=== PATIENT | male | born 1960 | race Caucasian/White ===

== ENCOUNTER 2022-03-01 12:43 | Outpatient (CLI) | payer BC ==
[2022-03-01 18:03] LABS: BASOPHILS % (AUTO) 0.4 %; EOSINOPHILS # (AUTO) 0.1 10^3/uL (0.0-0.7); HCT - HEMATOCRIT 47.5 % (42.0-52.0); HGB - HEMOGLOBIN 15.7 g/dL (14.0-18.0); LYMPHOCYTES # (AUTO) 2.5 10^3/uL (1.5-3.5); LYMPHOCYTES % (AUTO) 32.9 %; MEAN CORPUSCULAR HEMOGLOBIN 29.2 pg (27.0-31.0); MEAN CORPUSCULAR HGB CONC 33.1 g/dL (32.0-36.0); MEAN CORPUSCULAR VOLUME 88.3 fL (80.0-94.0); MEAN PLATELET VOLUME 10.6 fL (7.4-11.4); MONOCYTES # (AUTO) 0.8 10^3/uL (0.0-1.0); MONOCYTES % (AUTO) 9.9 %; NEUTROPHILS # (AUTO) 4.3 10^3/uL (1.5-6.6); NEUTROPHILS % (AUTO) 55.4 %; PLT - PLATELET COUNT 294 10^3/uL (130-450); RED BLOOD COUNT 5.38 10^6/uL (4.70-6.10); RED CELL DISTRIBUTION WIDTH 12.6 % (12.0-15.0); WHITE BLOOD COUNT 7.7 x10^3/uL (4.8-10.8)
[2022-03-01 18:33] LABS: ALBUMIN 4.5 g/dL (3.2-5.5); ALBUMIN/GLOBULIN RATIO 1.3 (1.0-2.2); ALKALINE PHOSPHATASE 45 IU/L (42-121); ALT ALANINE AMINOTRANSFERASE 21 IU/L (10-60); AST ASPARTATE AMINOTRANSFERASE 16 IU/L (10-42); BILIRUBIN,TOTAL 0.7 mg/dL (0.2-1.0); BUN - BLOOD UREA NITROGEN 17 mg/dL (6-20); CALCIUM 9.7 mg/dL (8.5-10.3); CARBON DIOXIDE - CO2 27 mmol/L (21-32); CHLORIDE 103 mmol/L (101-111); CHOL/HDL RATIO 4.9 (<5.0); CHOLESTEROL 162 mg/dL; CREATININE 0.9 mg/dL (0.6-1.2); GFR - MDRD 85 (>89); GLUCOSE 104 mg/dL (70-100); HDL CHOLESTEROL 33 mg/dL; LDL CHOLESTEROL,CALCULATED 96 mg/dL; LDL/HDL RATIO 2.9 (<3.6); POTASSIUM 4.4 mmol/L (3.5-5.0); SODIUM 138 mmol/L (135-145); TOTAL PROTEIN 7.9 g/dL (6.7-8.2); TRIGLYCERIDES 165 mg/dL; VLDL CHOLESTEROL 33 mg/dL
[2022-03-01 18:42] LABS: THYROID STIMULATING HORMONE 2.48 uIU/mL (0.34-5.60)
== END 2022-03-01 12:44 | disposition home or self-care (01) ==
LOC: LAB.N 12:43
PROVIDERS: ATTEND Physician Assistant
DX: Z13.9 Encounter for screening, unspecified (principal); Z13.220 Encounter for screening for lipoid disorders; Z12.5 Encounter for screening for malignant neoplasm of prostate; Z13.29 Encounter for screening for other suspected endocrine disorder
CPT/HCPCS: 36415; 80053; 80061; 83721; 84153; 84443; 85025

== ENCOUNTER 2022-03-01 13:10 | Outpatient (CLI) | payer BC ==
--- NOTE | 2022-03-01 14:38 | XRAY Report ---
PROCEDURE: Lumbar Spine 2 View INDICATIONS: PARESTHESIA OF L LOWER LIMB TECHNIQUE: 3 views of the lumbar spine were acquired. COMPARISON: None. FINDINGS: Bones: 5 [id number] vertebrae are present. There is normal bony alignment. No vertebral body compression fractures. No suspicious bony lesions. There is moderate degenerative disc disease present L3-4, L4-5, and L5-S1. Soft tissues: Overlying bowel gas pattern is normal. No suspicious soft tissue calcifications. IMPRESSION: Moderate degenerative disc disease present L3-4, L4-5, and L5-S1. Reviewed by: Jose Garcia MD on 03/01/2022 2:37 PM PDT Approved by: Jose Garcia MD on 03/01/2022 2:37 PM PDT Station ID: [id number]
--- NOTE | 2022-03-01 14:51 | XRAY Report ---
PROCEDURE: Knee 3 View BILAT INDICATIONS: ARTHRITIS, BILATERAL KNEES TECHNIQUE: 3 views of the right and left knee(s) were acquired. COMPARISON: None. FINDINGS: Bones: There is moderate to severe osteoarthritic type degenerative change present involving both kn ees with the medial compartments most severely affected. No fractures or dislocations are seen. There is a 2.5 cm low-grade cartilaginous lesion involving the distal right femoral metaphysis. Soft tissues: No joint effusion. No suspicious soft tissue calcifications. IMPRESSION: 1. Moderate to severe osteoarthritic degenerative change involving both knees with medial compartment most severely affected. 2. 2.5 cm low-grade cartilaginous lesion distal right femoral metaphysis. 3. No evidence for acute osseous abnormality involving the right or left knee. Reviewed by: Jose Garcia MD on 03/01/2022 2:49 PM PDT Approved by: Jose Garcia MD on 03/01/2022 2:49 PM PDT Station ID: [id number]
== END 2022-03-01 13:11 | disposition home or self-care (01) ==
LOC: DI.N 13:10
PROVIDERS: ATTEND Physician Assistant
DX: M17.0 Bilateral primary osteoarthritis of knee (principal); M51.36 Other intervertebral disc degeneration, lumbar region; M51.37 Other intervertebral disc degeneration, lumbosacral region; R93.6 Abnormal findings on diagnostic imaging of limbs; Z13.9 Encounter for screening, unspecified; Z13.220 Encounter for screening for lipoid disorders; Z12.5 Encounter for screening for malignant neoplasm of prostate; Z13.29 Encounter for screening for other suspected endocrine disorder
CPT/HCPCS: 36415; 80053; 80061; 83721; 84153; 84443; 85025

== ENCOUNTER 2022-04-06 11:53 | Outpatient (CLI) | payer BC ==
[2022-04-06 12:27] LABS: CREATININE 0.9 mg/dL (0.6-1.2)
[2022-04-06] MEDS ORDERED: GADOBUTROL 10 MMOL/10 ML VIAL ONE (12:51)
[2022-04-06] MEDS ORDERED: GADOBUTROL 10 MMOL/10 ML VIAL IVP ONE (16:42)
--- NOTE | 2022-04-07 09:53 | MRI Report ---
PROCEDURE: KNEE W/WO - RT INDICATIONS: NEOPLASM OF ARTICULAR CARTILAGE CONTRAST: gadavist 10ml TECHNIQUE: Noncontrast sagittal PD fast spin echo and T2 fast spin echo with fat saturation, sagittal 3-D spoile d GE with fat saturation; coronal T1 spin echo and PD fast spin echo with fat saturation, and axial T 1 spin echo and PD fast spin echo with fat saturation through the knee. Post-contrast axial, coronal , and sagittal T1 spin echo with fat saturation through the knee. COMPARISON: X-ray right knee, 03/01/2022. FINDINGS: Image quality: Excellent. Menisci: There is medial meniscal extrusion and complex tear of the medial meniscus involving the pos terior horn and body, as well as peripheral aspect of the anterior horn. The body of the medial menis cus is truncated. The lateral meniscus demonstrates normal morphology. This mild intrasubstance degeneration in the ant erior horn. No kraig meniscal tear. The meniscal root ligaments appear intact. Cruciate ligaments: There is mild mucoid degeneration of the anterior cruciate ligament. The posteri or cruciate ligament is intact. Medial structures: The medial collateral ligament appears intact. The semimembranosus tendon insert ions and meniscocapsular junction appear intact. Visualized portions of the pes anserinus tendons ap pear normal. No abnormal bursal fluid. Lateral structures: The lateral collateral ligament, long and short heads of the biceps femoris tend on appear intact. The popliteus tendon appears normal. Iliotibial band appears normal. Anterior structures: The quadriceps and patellar tendons appear intact. Patellar alignment is mini l. No femoral trochlear dysplasia or ventral trochlear prominence. No edema in the infrapatellar fa t pad. There is a small fluid collection in the prepatellar bursa consistent with bursitis. Bones and cartilage: There is a 2.3 x 1.2 x 3.1 cm mass in the distal femoral metaphysis demonstratin g chondroid matrix and MRI signal characteristics compatible with an enchondroma.. No bone marrow co ntusions or fractures. There is tricompartmental cartilage thinning and fibrillation, most pronounced in the medial femorotibial compartment with denuded weightbearing articular surface medial femoral c ondyle and medial tibial plateau. Reactive subchondral edema is seen in the medial femoral condyle an d medial tibial plateau, likely secondary to "[id number]". Joint space: There is trace knee joint effusion. A small Herrera's cyst. Normal appearing synovial p licae are incidentally noted. No suspicious soft tissue enhancement. IMPRESSION: 1. A 2.1 x 1.2 x 3.1 cm enchondroma in the distal femoral metaphysis. 2. Medial meniscal extrusion and extensive tear. 3. Severe cartilage degeneration in the medial femorotibial compartment with denuded weightbearing ar ticular surface in the medial femoral condyle and medial tibial plateau. 4. Prepatellar bursitis. 5. A small Herrera's cyst. Reviewed by: Guillaume Soriano MD on 04/07/2022 9:52 AM PDT Approved by: Guillaume Soriano MD on 04/07/2022 9:52 AM PDT Station ID: [id number]
== END 2022-04-06 11:54 | disposition home or self-care (01) ==
LOC: LAB 11:53
PROVIDERS: ATTEND Physician Assistant
DX: D16.21 Benign neoplasm of long bones of right lower limb (principal); S83.241A Other tear of medial meniscus, current injury, right knee, initial encounter; M70.41 Prepatellar bursitis, right knee
CPT/HCPCS: 36415; 73723; 82565; A9585

== ENCOUNTER 2022-04-18 09:46 | Outpatient (CLI) | payer BC ==
[2022-04-18 10:56] VITALS: BP 140/90
--- NOTE | 2022-04-18 10:56 | SLEEP CARE CONSULTATION ---
Information from patient questionnaire entered by Harry Weir. I have reviewed and concur with the information entered by Harry Weir. This document represents the service I personally performed and the decisions made by me, Frederick Hallman MD, [facility]. History of Present Illness Service Date and Time: 04/18/2022 0946 Reason for Visit: New patient Chief Complaint: reports: Insomnia, Unrefreshed sleep, Snoring, Excessive daytime sleepiness, Observed pauses in breathing, Fatigue, Frequent awakenings at night Date of Onset: YEARS Usual bedtime: 10-12PM Time it takes to fall asleep: 20-30MIN Snores at night: Yes Observed to quit breathing while asleep: Yes Sleeps alone due to snoring: Yes Number of times waking at night: 2 Reasons for waking at night: reports: Bathroom Toss, Turn, or Twitch while sleeping: Yes Recalls having dreams: Yes Usually gets out of bed at: 6-7AM Feels refreshed in the morning: No Morning headache: No Sleepy or fatigued during the day: Yes Ever fallen asleep while driving: No Takes day naps: Yes Dreams during day naps: Yes Prior sleep studies: Yes Additional HPI information: I had the pleasure of seeing Mr. Chino today regarding the possibility of him having a sleep disorder. As you know, he is a 61-year-old gentleman who complains of loud snore, observed apneas, insomnia, unrefreshed sleep, and excessive daytime sleepiness for years. He had a sleep study about 15 years ago in [place]. He was prescribed a CPAP which he used for about 3 years. He said he never got used to the device. He did sleep better on it. The patient tells me that he normally goes to bed around 10 pm - midnight, and it takes him approximately 20 - 30 minutes to fall asleep. He has been told that he snores loudly and irregularly at night. He has also been observed to stop breathing in his sleep. His has to sleep in a separate room. He can recall waking up on the average of 2 times during the night. Most of the time he wakes up because of having to use the bathroom. He has awakened occasionally because of his own snoring, choking, and having to gasp for air. There is a lot of tossing and turning in his sleep. No somniloquy (sleep talking) or somnambulism (sleep walking). Usually, he can recall having dreams. In the morning he usually gets up out of the bed around 6 - 7 a.m. not feeling refreshed nor rested. He usually does not have a morning headache. During the day he complains of feeling sleepy and fatigued. His score on [place] Sleepiness Scale is 16 out of 24. He never has fallen asleep while driving nor has had any accident due to sleepiness. He usually takes naps during the day. Upon falling asleep during the day he reports having dreams. He has never had sleep paralysis, experienced cataplexy or symptoms of restless leg syndrome. He reports having impaired concentration during the day. 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 Patient is and lives in . Have you smoked in the past 12 months: No Alcohol use: No Caffeine use: Yes Caffeine amount and frequency: 2-3 CUPS DAILY Family History Family Hx Sleep Apnea: Mother: Snoring, Father: Snoring, Sleep apnea - Untreated, Sibling: Snoring, Sleep apnea - Untreated Allergies and Home Medications Known drug allergies: No Drug allergies reviewed: Yes Home medication list reviewed: Yes Review of Systems Cardiovascular: denies: high blood pressure, palpitations, chest pain, irregular heart rate or pulse, leg or foot swelling, have to sleep sitting up, other Respiratory: denies: shortness of breath, wheeze, sputum production, chronic cough, other Gastrointestinal: denies: heartburn, difficulty swallowing, nausea, vomitting, diarrhea, abdominal pain, other Urinary: reports: urgency Neurological: reports: gait or balance problems Psychiatric: denies: Attention Deficit Hyperactivity, anxiety, depression, mood disorder, claustrophobia, other Ear/Nose/Throat: reports: nasal congestion Endocrine: reports: sluggishness Musculoskeletal: reports: joint pain, back pain, muscle pain or cramping Immunologic: reports: sneezing Physical Exam Vital signs obtained and entered by: HARRY Thomas MA Blood Pressure: 140/90 (left arm) Cuff size: regular Heart Rate: 97 O2 Saturation: 78 Height: 5 ft 11 in Weight: 262 lb 12.8 oz Body Mass Index: 36.6 BMI Classification: Obese Neck circumference: 18.5 Mood/affect: Normal HEENT: No craniofacial malformation Nostrils: patent to airflow Turbinates: normal Septum: midline Mouth and throat: narrow oropharynx Soft palate: long Hard palate: normal Uvula: normal Uvula visualization: 50% Mallampati Class II Tongue: normal in size Tonsils: small Chin and jaw: normal size and position Neck: normal w/o lymphadenopathy or thyromegaly Heart: regular rate and rhythm Lungs: clear bilaterally Extremities: no edema or clubbing Neurologic: intact Impression and Plan IMPRESSION: 1. Obstructive Sleep Apnea-Hypopnea Syndrome, as previously diagnosed. He appears to be symptomatic for loud snoring, frequent awakenings during the night, nocturnal choking, unrefreshed sleep, cognitive impairment, and daytime hypersomnolence. Narrow oropharynx and obesity are common predisposing factors for obstructive sleep apnea-hypopnea syndrome. An in- laboratory polysomnography will be ordered to confirm the diagnosis. However, due to his insurance constraints, a home sleep apnea test (HSAT) will be performed Plan: 1. Schedule z home sleep apnea test (HSAT). 2. Avoid long distance driving or when feeling sleepy. 3. Avoid alcohol, sedative and muscle relaxant around bedtime. 4. Attempt to lose weight. Visit Type: In Office Time Spent with Patient (minutes): 15 Provider Statement: I spent 100% of the Face to Face Visit with the patient with greater than 50% spent counseling the patient and coordination of care.
== END 2022-04-18 09:47 | disposition home or self-care (01) ==
LOC: SC 09:46
PROVIDERS: ATTEND Internal Medicine Pulmonary Disease
DX: G47.33 Obstructive sleep apnea (adult) (pediatric) (principal); E66.9 Obesity, unspecified; Z68.36 Body mass index [BMI] 36.0-36.9, adult
CPT/HCPCS: 99202; 99212

== ENCOUNTER 2022-04-28 12:29 | Outpatient (CLI) | payer BC | END 2022-04-28 12:30 | disposition home or self-care (01) | LOC: SC 12:29 | PROVIDERS: ATTEND Internal Medicine Pulmonary Disease | DX: G47.33 Obstructive sleep apnea (adult) (pediatric) (principal); R09.02 Hypoxemia | CPT/HCPCS: 95806 ==

== ENCOUNTER 2022-05-06 13:25 | Outpatient (CLI) | payer BC ==
[2022-05-06 14:15] VITALS: BP 142/88
--- NOTE | 2022-05-06 14:15 | SLEEP CARE CONSULTATION ---
Information from patient questionnaire entered by Aislinn Weir. I have reviewed and concur with the information entered by Aislinn Weir. This document represents the service I personally performed and the decisions made by me, Cinthya Levy ARNP. History of Present Illness Service Date and Time: 05/06/2022 1325 Initial [place] Sleepiness Scale score: 16 (03/21/2022) Current [place] Sleepiness Scale score: 11 Additional HPI information: NEMESIO SINHA returns for follow up and results of the recently performed home sleep study. I explained the pathophysiology behind obstructive sleep apnea. We then spent quite a bit of time discussing different treatment options. For mild obstructive sleep apnea, surgery and oral appliance are alternatives to nasal CPAP therapy but in moderate or severe cases, nasal CPAP is the most effective and reliable treatment. Because apnea is primarily in supine position, then positional management therapy could be effective. Methods discussed such as positioning with pillows to prevent supine sleep. I reviewed the impact of weight changes on sleep apnea and strongly recommended losing weight. After some discussion, the patient opted to go with the nasal CPAP therapy. Nasal autoCPAP set at 4-15 cmH20 will be ordered with rationale explained. A manual titration study will be ordered if unable to find optimal pressure with office adjustments. I explained how CPAP machine works and what to expect when using the machine. Using CPAP every night in order to get used to it was emphasized. Patient advised to put CPAP mask on before getting into bed so as not to fall asleep without CPAP. To assist acclimation to CPAP use, it could also be used for a short time during day while reading or watching TV. The patient was instructed to call the CPAP supplier to discuss any mechanical problem that may occur. If the mask given is uncomfortable or is difficult to keep on through the night even with adjustment, contact the CPAP supplier as many will replace with another mask style if notified before 30 days. If snoring or perceives is not getting enough air or too much air from the machine, notify this office. Patient does not drink alcohol. Patient was cautioned about risks of drowsy driving until sleepiness symptoms resolve. Patient denies drowsy driving. Sleep Study - Results Type of Sleep Study: Home sleep study (COMPLETED 04-28-22) Prior sleep studies: Yes Polysomnography/Home Sleep Study results: Physician Impression: The quality of the study is good. The length of the study is adequate (> 240 minutes). Please also see the tabulated and graphic data. 1. Obstructive Sleep Apnea-Hypopnea (ICD-10 G47.33), moderate, with an AHI of 23.7/hr and rodriguez SaO2 of 80%. During the study, the patient had 175 apneas (175 obstructive, 0 central, 0 mixed) and 13 hypopneas. The longest episode lasted 80.5 seconds. The respiratory events occurred more frequently during supine sleep (supine AHI was 39.6 and non-supine, 17.96). 2. Hypoxemia (ICD-10 R09.02), mild, with the lowest oxygen saturation of 80 % and 9.0 minutes with SaO2 under 90%. Baseline oxygen saturation was normal (Average oxygen saturation was 96%). Allergies and Home Medications Drug allergies reviewed: Yes (NKDA) Home medication list reviewed: Yes (No changes) Review of Systems Review of systems same as previous: Yes (no changes) Physical Exam Vital signs obtained and entered by: Emmett Luis, coal and ash supervisor Pressure: 142/88 (left) Cuff size: regular Heart Rate: 84 O2 Saturation: 97 Height: 5 ft 11 in Weight: 254 lb Body Mass Index: 35.4 BMI Classification: Obese Impression and Plan 1. Obstructive Sleep Apnea-Hypopnea Syndrome, moderate, with lowest oxygen saturation of 80%. Obviously this is the cause of the patients symptoms of unrefreshed sleep, and excessive daytime sleepiness. As mentioned above, the patient will be started on nasal autoCPAP therapy with pressure set at 4-15 cmH2 O. Compliance guidelines also reviewed. A copy of compliance guidelines will be given for reference at check out. Because the apnea is more severe supine, I instructed to avoid sleeping supine using pillow positioning until able to start CPAP use. 2. Hypoxemia, mild, with the lowest oxygen saturation of 80 % and 9.0 minutes with SaO2 under 90%. His baseline oxygen saturation was normal with an average oxygen saturation of 96%. 3. Obesity, unspecified. Currently patients BMI is 35.4. Obesity increases the risk of apnea, CPAP pressure requirements and overall health risks especially cardiovascular and diabetes. Thus patient is advised to lose weight. * Nasal auto CPAP therapy, pressure at 4-15 cm H2O. * Attempt to lose weight. * Avoid alcohol consumption near bedtime. * Avoid supine sleep until using CPAP. * The patient is again cautioned about driving until sleepiness completely resolves. * Return one month after CPAP obtained. I will assess response to therapy and compliance at that time. Counseling Topics: Spare mask, Weight loss health impact Visit Type: In Office Time Spent with Patient (minutes): 21 Provider Statement: I spent 100% of the Face to Face Visit with the patient with greater than 50% spent counseling the patient and coordination of care.
== END 2022-05-06 13:26 | disposition home or self-care (01) ==
LOC: SC 13:25
PROVIDERS: ATTEND Nurse Practitioner Family
DX: G47.33 Obstructive sleep apnea (adult) (pediatric) (principal); R09.02 Hypoxemia; E66.9 Obesity, unspecified; Z68.35 Body mass index [BMI] 35.0-35.9, adult
CPT/HCPCS: 99212; 99213

== ENCOUNTER 2022-09-19 08:00 | Outpatient (CLI) | payer BC ==
--- NOTE | 2022-09-19 14:10 | XRAY Report ---
PROCEDURE: Knee 4 View BILAT INDICATIONS: BILAT KNEE PAIN TECHNIQUE: 4 views of the bilateral knee(s) were acquired. COMPARISON: X-ray knees 913 2 FINDINGS: Bones: No fractures or dislocations. No suspicious bony lesions. There is moderate to severe dege nerative narrowing within the medial compartments bilaterally. Similar although less prominent appear ance is noted laterally more prominent on the left. Bilateral moderate patellofemoral compartment tammy rowing is present. Scattered periarticular osteophytes. No erosions. Soft tissues: Minimal bilateral effusions. No suspicious soft tissue calcifications or masses. IMPRESSION: Tricompartmental arthritic changes most severe medially, overall stable compared to prior exam. Reviewed by: Luz Marina Austin MD on 09/19/2022 2:09 PM PDT Approved by: Luz Marina Autsin MD on 09/19/2022 2:09 PM PDT Station ID: [id number]
== END 2022-09-19 23:59 | disposition home or self-care (01) ==
LOC: DI.WOS 08:00
PROVIDERS: ATTEND Physician Assistant Surgical
DX: M17.0 Bilateral primary osteoarthritis of knee (principal)

== ENCOUNTER 2022-10-21 07:23 | Day surgery (SDC) | payer BC ==
[2022-10-21] MEDS ORDERED: LACTATED RINGERS 1,000 ML IV ONE (07:29)
[2022-10-21] MEDS ORDERED: PROPOFOL 500 MG/50 ML 500 MG/50 ML VIAL ONE (07:44)
--- NOTE | 2022-10-21 08:02 | ANESTHESIA ---
Pre-Anesthesia VS, & Labs - Diagnosis screening exam - Procedure colonoscopy Vital Signs: Temp Pulse Resp BP Pulse Ox O2 Flow Rate 36.8 C 73 21 136/92 H 98 10/21/22 07:29 10/21/22 07:29 10/21/22 07:29 10/21/22 07:29 10/21/22 07:29 Height: 5 ft 10 in Weight (kg): 116.8 kg Body Mass Index: 36.9 BMI Classification: Obese - NPO >8 hours Home Medications and Allergies Home Medications: Ambulatory Orders Tamsulosin [Flomax] 0.4 mg PO DAILY 10/20/22 Tamsulosin [Flomax] 0.4 mg PO DAILY 10/20/22 Allergies/Adverse Reactions: Allergies Allergy/AdvReac Type Severity Reaction Status Date / Time Bees Allergy Anaphylaxis Uncoded 10/21/22 07:49 Anes History & Medical History - Anesthetic History Anesthesia Complications: reports: No previous complications - Medical History Cardiovascular: reports: None Pulmonary: reports: Sleep apnea, CPAP use Gastrointestinal: reports: None Urinary: reports: Benign prostate hypertrophy Neuro: reports: None Musculoskeletal: reports: None Endocrine/Autoimmune: reports: None Skin: reports: None Smoking Status: Never smoker Psychosocial: reports: No issues indicated History of Cancer?: No - Surgical History Eyes Ears Nose Throat (EENT): reports: Other Orthopedic: reports: Other Exam General: Alert, Oriented x3, Cooperative, No acute distress Dental: WNL Mouth Openin Fingerbreadth Neck Mobility: Normal Mallampati classification: II Thyromental Distance: 4-6 cm Mental/Cognitive Status: Alert/Oriented X3, Normal for patient Plan Anesthesia Type: General, Total IV Consent for Procedure(s) Verified and Reviewed: Yes Code Status: Attempt Resuscitation ASA classification: 2-Mild systemic disease Is this case an emergency?: No
[2022-10-21] MEDS ORDERED: PROPOFOL 200 MG/20 ML VIAL IVP ONE (09:11)
[2022-10-21] MEDS ORDERED: LACTATED RINGERS 500 ML IV ONE (09:16)
[2022-10-21 09:41] VITALS: BP 113/73
--- NOTE | 2022-10-21 09:58 | ANESTHESIA POST OP EVALUATION ---
Anesthesia Post Eval - Post Anesthesia Eval Vitals: Last Vital Signs Temp 36.5 C 10/21/22 09:39 Pulse 65 10/21/22 09:39 Resp 16 10/21/22 09:39 BP 113/73 10/21/22 09:39 Pulse Ox 99 10/21/22 09:39 O2 Flow Rate CV Function Including HR & BP: Stable Pain Control: Satisfactory Nausea & Vomiting: Negative Mental Status: Baseline Respiratory Status: Airway Patent Hydration Status: Satisfactory Anesthesia Complications: None
== END 2022-10-21 07:24 | disposition home or self-care (01) ==
LOC: SDS 07:23
PROVIDERS: ATTEND Surgery
PROC: 0DBN8ZX Excision of Sigmoid Colon, Via Natural or Artificial Opening Endoscopic, Diagnostic (ICD-10-PCS; 2022-10-21)
PROC: 0DBP8ZX Excision of Rectum, Via Natural or Artificial Opening Endoscopic, Diagnostic (ICD-10-PCS; principal; 2022-10-21 08:30)
DX: Z12.11 Encounter for screening for malignant neoplasm of colon (principal); D12.5 Benign neoplasm of sigmoid colon; K57.30 Diverticulosis of large intestine without perforation or abscess without bleeding; K62.1 Rectal polyp; G47.33 Obstructive sleep apnea (adult) (pediatric); E66.9 Obesity, unspecified; Z68.39 Body mass index [BMI] 39.0-39.9, adult
CPT/HCPCS: 45385; J7120

== ENCOUNTER 2022-11-29 12:48 | Outpatient (CLI) | payer BC ==
--- NOTE | 2022-11-29 13:31 | SLEEP CARE CONSULTATION ---
Information from patient questionnaire entered by Aislinn Weir. I have reviewed and concur with the information entered by Aislinn Weir. This document represents the service I personally performed and the decisions made by , Cinthya Levy ARNP. History of Present Illness Service Date and Time: 11/29/2022 1248 Previous diagnosis: Moderate, Obstructive Sleep Apnea-Hypopnea Syndrome AHI: 23.7 (in 04/2022) Reason for follow up: first compliance Equipment type: CPAP (RESMED Airsense 10, s/u 05/2022 SD CARD NEEDED) Equipment obtained from: Other ([facility]; getting supplies) Mask style: Nasal (over the nose) Backup mask available: Yes (other mask) Prior sleep studies: Yes Year and Where: 2021 [facility] Type of Sleep Study: Home sleep study (COMPLETED 04-28-22) HPI additional information: NEMESIO SINHA was diagnosed to have moderate, AHI 23.7, obstructive sleep apnea- hypopnea syndrome and returned today for CPAP therapy first compliance follow- up. Sleep Study - Results Type of Sleep Study: Home sleep study (COMPLETED 04-28-22) Prior sleep studies: Yes CPAP Compliance Data - Data Reviewed with Patient Average duration of nightly device use: 4 hours 30 minutes Compliance rate %: 33 (67/120 days used) Current pressure setting (cmH2O): 9.6 Average residual AHI: 0.9 Central apnea: 0.1 Obstructive apnea: 0.3 Hypopnea: 0.5 Average large leak: 5.4 LPM Subjective Missed days of use due to: reports: mask issues (can't use mask when congested), illness (allergies causing nasal congestion), other (will take mask off when sleeping) Patient concerns: reports: mask leak noise, nasal congestion. denies: aerophagia, mask discomfort, air blowing in eyes, condensation in mask/hose, dry mouth, nose, throat, epistaxis Observed to snore while using device: No Current pressure setting perceived as: comfortable On therapy, patient: reports: sleeping better, awakening more refreshed, being more awake and alert during the day, more rested overall, drowsiness while driving Initial [place] Sleepiness Scale score: 16 (03/21/2022) Current [place] Sleepiness Scale score: 14 Allergies and Home Medications Known drug allergies: No (Bees) Drug allergies reviewed: Yes Home medication list reviewed: Yes (Tamsulosin) Allergy and home medication list: Allergies Bees Allergy (Uncoded 11/28/22 21:28) Anaphylaxis Review of Systems Review of systems same as previous: Yes (BPH) Physical Exam Vital signs obtained and entered by: Cinthya Hylton NP Blood Pressure: 140/80 Cuff size: wrist (right) Heart Rate: 71 O2 Saturation: 98 Height: 5 ft 10 in Weight: 261 lb 6.4 oz Body Mass Index: 37.5 BMI Classification: Obese Impression and Plan 1. Obstructive Sleep Apnea-Hypopnea Syndrome, moderate, with fair treatment compliance and good apnea control. On CPAP therapy, the patient has better sleep quality and is more rested overall. Patient comes back for compliance visit. He has been using his CPAP with significant improvement of his sleep apnea. But his use is irregular. I will have him come back after discussing with his compliance of 4 hours or more nightly 70% of time. He voiced understanding. He has been adjusting his pressure and I advised him to not change the pressure and let me know if he feels he needs an adjustment. I will have him continue with pressure set at 9.6 cmH2O. Patient's apnea severity and rationale for treatment to reduce apnea, improve sleep quality and reduce cardiovascular and cerebrovascular events was reviewed. 2. Obesity, unspecified. Currently patients BMI is 37.5. Obesity increases the risk of apnea, CPAP pressure requirements and overall health risks especially cardiovascular and diabetes. Thus patient is advised to lose weight. * Continue CPAP pressure at 9.6 cmH2O * Notify me if snoring with mask or feeling that the pressure is too much or too little * Attempt to lose weight * Call this office if any problems using CPAP * Return for follow up in 1-2 months, or sooner if concerns arise Counseling Topics: Spare mask, Weight loss health impact Visit Type: In Office Time Spent with Patient (minutes): 28 Provider Statement: I spent 100% of the Face to Face Visit with the patient with greater than 50% spent counseling the patient and coordination of care.
[2022-11-29 14:12] VITALS: BP 140/80
== END 2022-11-29 12:49 | disposition home or self-care (01) ==
LOC: SC 12:48
PROVIDERS: ATTEND Nurse Practitioner Family
DX: G47.33 Obstructive sleep apnea (adult) (pediatric) (principal); E66.9 Obesity, unspecified; Z68.37 Body mass index [BMI] 37.0-37.9, adult
CPT/HCPCS: 99212; 99213

== ENCOUNTER 2023-03-08 08:17 | Outpatient (CLI) | payer BC ==
--- NOTE | 2023-03-08 08:52 | Sleep Patient Instructions ---
Sleep Center Visit Summary - Patient Visit Information Reason for Visit: Two month followup for PAP therapy - Patient Instructions Additional Instructions: You were here for follow up of CPAP therapy. You will be continued on CPAP therapy with pressure at 9.6 cmH2O. You should follow up with sleep care in 3 months. You may contact us sooner for any questions or concerns. - Clinic Information Contact: [facility] [address] [place] [address] [email or web address] T: [phone]
--- NOTE | 2023-03-08 09:03 | SLEEP CARE CONSULTATION ---
Information from patient questionnaire entered by Aislinn Weir. I have reviewed and concur with the information entered by Aislinn Weir. This document represents the service I personally performed and the decisions made by , Cinthya Levy ARNP. History of Present Illness Service Date and Time: 03/08/2023 08 Previous diagnosis: Moderate, Obstructive Sleep Apnea-Hypopnea Syndrome AHI: 23.7 Reason for follow up: other (2 MONTH F/U) Equipment type: CPAP (RESMED 10; s/u 05/2022 SD CARD NEEDED) Equipment obtained from: Other ([facility]; getting supplies as needed) Mask style: Nasal (over the nose) Backup mask available: Yes (other mask) Last cushion change: 3 months Prior sleep studies: Yes Year and Where: 2021 [facility] Type of Sleep Study: Home sleep study (COMPLETED 04-28-22) HPI additional information: NEMESIO SINHA was diagnosed to have moderate, AHI 23.7, obstructive sleep apnea- hypopnea syndrome and returned today for CPAP therapy two month follow-up. Sleep Study - Results Type of Sleep Study: Home sleep study (COMPLETED 04-28-22) Prior sleep studies: Yes Year and Where: 2021 [facility] CPAP Compliance Data - Data Reviewed with Patient Average duration of nightly device use: 4 hours 56 minutes Compliance rate %: 43 (63% in last 30 days; 37/60 days used) Current pressure setting (cmH2O): 9.6 Average residual AHI: 0.4 Central apnea: 0.1 Obstructive apnea: 0.1 Hypopnea: 0.2 Average large leak: 10.9 L/min Subjective Missed days of use due to: reports: other (falling asleep before going to bed) Patient concerns: reports: air blowing in eyes (from vent), dry mouth, nose, throat (dry throat). denies: aerophagia, mask discomfort, mask leak noise, condensation in mask/hose, nasal congestion, epistaxis Observed to snore while using device: No Current pressure setting perceived as: comfortable On therapy, patient: reports: sleeping better, awakening more refreshed, being more awake and alert during the day, more rested overall. denies: drowsiness while driving Initial [place] Sleepiness Scale score: 16 (03/21/2022) Current [place] Sleepiness Scale score: 11 (03/08/23) Allergies and Home Medications Known drug allergies: No Drug allergies reviewed: Yes Home medication list reviewed: Yes (Tamsulosin) Allergy and home medication list: Allergies Bees Allergy (Uncoded 03/07/23 13:10) Anaphylaxis Review of Systems Review of systems same as previous: Yes (N/A) Physical Exam Vital signs obtained and entered by: AISLINN Thomas MA Blood Pressure: 128/72 (LEFT ARM) Cuff size: regular Heart Rate: 78 O2 Saturation: 96 Height: 5 ft 10 in Weight: 260 lb 3.2 oz Body Mass Index: 37.3 BMI Classification: Obese Impression and Plan 1. Obstructive Sleep Apnea-Hypopnea Syndrome, moderate, with fair treatment compliance and good apnea control. On CPAP therapy, the patient has better sleep quality and is more rested overall. Patient has increased his compliance but will still fall asleep without his mask on. To prevent falling asleep without CPAP, patient advised to set a bedtime alarm on their phone for use while watching TV on couch or in bed. He voiced understanding. He also asks if there is a mask that would allow him to wear his glasses with the mask on. I fit him to a Plated nasal cushion mask, medium cushion, he will try this and see if it works better for him. Patient's apnea severity and rationale for treatment to reduce apnea, improve sleep quality and reduce cardiovascular and cerebrovascular events was reviewed. 2. Obesity, unspecified. Currently patients BMI is 37.3. Obesity increases the risk of apnea, CPAP pressure requirements and overall health risks especially cardiovascular and diabetes. Thus patient is advised to lose weight. * Continue CPAP pressure at 9.6 cmH2O * Notify me if snoring with mask or feeling that the pressure is too much or too little * Attempt to lose weight * Call this office if any problems using CPAP * Return for follow up in 3 months, or sooner if concerns arise Mask provided: Yes Counseling Topics: Spare mask, Weight loss health impact Visit Type: In Office Time Spent with Patient (minutes): 28 Provider Statement: I spent 100% of the Face to Face Visit with the patient with greater than 50% spent counseling the patient and coordination of care.
[2023-03-08 09:12] VITALS: BP 128/72; O2SAT 96
== END 2023-03-08 08:18 | disposition home or self-care (01) ==
LOC: SC 08:17
PROVIDERS: ATTEND Nurse Practitioner Family
DX: G47.33 Obstructive sleep apnea (adult) (pediatric) (principal); E66.9 Obesity, unspecified; Z68.37 Body mass index [BMI] 37.0-37.9, adult
CPT/HCPCS: 99212; 99213

== ENCOUNTER 2023-03-20 08:00 | Outpatient (CLI) | payer BC ==
--- NOTE | 2023-03-20 16:37 | XRAY Report ---
PROCEDURE: Knee 4 View BILAT INDICATIONS: BILAT KNEE PAIN TECHNIQUE: 4 views of the bilateral knee(s) were acquired. COMPARISON: None. FINDINGS: Bones: No fractures or dislocations. 2.6 cm dense lesion with ring and arc configuration in the dist al femur metadiaphysis on the right. Tricompartmental joint space narrowing with associated osteoph ytosis. Soft tissues: No knee joint effusion. No suspicious soft tissue calcifications or masses. IMPRESSION: No acute bony abnormality. Mild to moderate tricompartmental osteoarthritis. Kellgren-Rigoberto scale of osteoarthritis: 2. 2.6 cm dense lesion with ring and arc configuration of the distal femur metadiaphysis on the right. F indings favor an enchondroma. If this patient has pain over this specific site, recommend MRI with co ntrast for complete characterization. Reviewed by: Oskar Holguin on 03/20/2023 4:36 PM PDT Approved by: Oskar Holguin on 03/20/2023 4:36 PM PDT Station ID: [id number]
== END 2023-03-20 23:59 | disposition home or self-care (01) ==
LOC: DI.WOS 08:00
PROVIDERS: ATTEND Physician Assistant Surgical
DX: M17.0 Bilateral primary osteoarthritis of knee (principal); M89.9 Disorder of bone, unspecified

== ENCOUNTER 2023-05-30 08:07 | Outpatient (CLI) | payer BC ==
--- NOTE | 2023-05-30 08:38 | Sleep Patient Instructions ---
Sleep Center Visit Summary - Patient Visit Information Reason for Visit: 3 month followup - Patient Instructions Additional Instructions: You were here for follow up of CPAP therapy. You will be continued on CPAP therapy with pressure at 9.6 cmH2O. You should follow up with sleep care in 12 months. You may contact us sooner for any questions or concerns. - Clinic Information Contact: [facility] [address] [place] [id number] [email or web address] T: [phone]
--- NOTE | 2023-05-30 08:42 | SLEEP CARE CONSULTATION ---
Information from patient questionnaire entered by Aislinn Weir. I have reviewed and concur with the information entered by Aislinn Weir. This document represents the service I personally performed and the decisions made by me, Cinthya Levy ARNP. History of Present Illness Service Date and Time: 05/30/2023 0807 Previous diagnosis: Moderate, Obstructive Sleep Apnea-Hypopnea Syndrome AHI: 23.7 Reason for follow up: three month (F/U) Equipment type: CPAP (RESMED 10; s/u 05/2022 SD CARD NEEDED) Equipment obtained from: Other ([facility]; getting supplies) Mask style: Nasal Mask brand: Respironics (Dreamwear) Backup mask available: Yes (other mask) Last cushion change: three months Prior sleep studies: Yes Year and Where: 2021 [facility] Type of Sleep Study: Home sleep study (COMPLETED 04-28-22) HPI additional information: NEMESIO SINHA was diagnosed to have moderate, AHI 23.7, obstructive sleep apnea- hypopnea syndrome and returned today for CPAP therapy three month follow-up. Sleep Study - Results Type of Sleep Study: Home sleep study (COMPLETED 04-28-22) Prior sleep studies: Yes Year and Where: 2021 [facility] CPAP Compliance Data - Data Reviewed with Patient Average duration of nightly device use: 7 hours 5 minutes Compliance rate %: 84 (83/90 days used) Current pressure setting (cmH2O): 9.6 Average residual AHI: 0.6 Central apnea: 0.1 Obstructive apnea: 0.3 Average large leak: 3.8 L/min Subjective Missed days of use due to: reports: travel Patient concerns: reports: mask leak noise, nasal congestion (due to allergies, congestion is before CPAP). denies: aerophagia, mask discomfort, air blowing in eyes, condensation in mask/hose, dry mouth, nose, throat, epistaxis Observed to snore while using device: No Current pressure setting perceived as: comfortable On therapy, patient: reports: sleeping better, awakening more refreshed, being more awake and alert during the day, more rested overall. denies: drowsiness while driving Initial [place] Sleepiness Scale score: 16 (03/21/2022) Current [place] Sleepiness Scale score: 7 (05/30/23) Allergies and Home Medications Known drug allergies: No (as listed) Drug allergies reviewed: Yes Home medication list reviewed: Yes (no changes) Allergy and home medication list: Allergies Bees Allergy (Uncoded 05/29/23 08:48) Anaphylaxis Review of Systems Review of systems same as previous: Yes (NO CHANGE) Physical Exam Vital signs obtained and entered by: AISLINN Thomas MA Blood Pressure: 148/92 (RIGHT ARM) Cuff size: regular Heart Rate: 88 O2 Saturation: 99 Height: 5 ft 10 in Weight: 269 lb 3.2 oz Body Mass Index: 38.6 BMI Classification: Obese Impression and Plan 1. Obstructive Sleep Apnea-Hypopnea Syndrome, moderate, with good treatment compliance and good apnea control. On CPAP therapy, the patient has better sleep quality and is more rested overall. Patient has significant improvement of their sleep apnea and is satisfied with current CPAP therapy. Patient denies problems with oral dryness, nasal congestion, epistaxis, skin irritation or aerophagia. He is doing well and comfortable with current settings on his CPAP. He is also liking the mask that we fitted to him at his last visit and is working well with it. He has increased his compliance and is comfortable going out for a yearly visit. Patient's apnea severity and rationale for treatment to reduce apnea, improve sleep quality and reduce cardiovascular and cerebrovascular events was reviewed. 2. Obesity, unspecified. Currently patients BMI is 38.6. Obesity increases the risk of apnea, CPAP pressure requirements and overall health risks especially cardiovascular and diabetes. Thus patient is advised to lose weight. * Continue auto CPAP pressure at 9.6 cmH2O * Notify me if snoring with mask or feeling that the pressure is too much or too little * Attempt to lose weight * Call this office if any problems using CPAP * Return for follow up in 12 months, or sooner if concerns arise Counseling Topics: Spare mask, Weight loss health impact Follow up with Sleep Care in: 1 year Visit Type: In Office Time Spent with Patient (minutes): 21 Provider Statement: I spent 100% of the Face to Face Visit with the patient with greater than 50% spent counseling the patient and coordination of care.
[2023-05-30 08:48] VITALS: BP 148/92; O2SAT 99
== END 2023-05-30 08:08 | disposition home or self-care (01) ==
LOC: SC 08:07
PROVIDERS: ATTEND Nurse Practitioner Family
DX: G47.33 Obstructive sleep apnea (adult) (pediatric) (principal); E66.9 Obesity, unspecified; Z68.38 Body mass index [BMI] 38.0-38.9, adult
CPT/HCPCS: 99212; 99213

== ENCOUNTER 2023-11-20 19:15 | Emergency (ER) | payer BC ==
--- NOTE | 2023-11-20 19:36 | ED Physician Documentation ---
PD HPI HEAD INJURY - Stated complaint Stated Complaint: FALL/HIT HEAD - Chief complaint Chief Complaint: Trauma Hd/Nk - History obtained from History obtained from: Patient, Friend - Additional information Additional information: Otherwise healthy 63-year-old gentleman was brought in by his roommate. It sounds like early this morning he suffered a fall and hit his head on the curb. He has a large forehead laceration and states he did not come in at the time because he did not feel like it was a serious issue. He is modestly confused and does not recollect if he had loss of consciousness. PD PAST MEDICAL HISTORY - Past Medical History Past Medical History: No Neuro: None - Present Medications Home Medications: Ambulatory Orders Medication Instructions Recorded Confirmed Tamsulosin [Flomax] 0.4 mg PO DAILY 10/20/22 05/30/23 - Allergies Allergies/Adverse Reactions: Allergies Allergy/AdvReac Type Severity Reaction Status Date / Time Bees Allergy Anaphylaxis Uncoded 11/20/23 19:29 - Social History Does the pt smoke?: No Smoking Status: Never smoker - Immunizations Immunizations are current?: No Immunizations: TDAP >10years/unknown PD ED PE NORMAL - Vitals Vital signs reviewed: Yes - General General: No acute distress, Other (He is wobbly, slightly slow to answer questions and alert and oriented x 2.) - HEENT HEENT: PERRL, Other (There is a 8 cm curved forehead laceration down to but not through the [place]. I cannot tell if he has nystagmus because he does not really follow commands well enough to track extraocular movements.) - Neck Neck: Supple, no meningeal sign, No bony TTP - Cardiac Cardiac: RRR, No murmur - Respiratory Respiratory: No respiratory distress, Clear bilaterally - Abdomen Abdomen: Soft, Non tender - Back Back: No CVA TTP, No spinal TTP - Derm Derm: Normal color, Warm and dry - Neuro Neuro: No motor deficit, No sensory deficit Eye Opening: Spontaneous Motor: Obeys Commands Verbal: Confused GCS Score: 14 Results - Vitals Vitals: Vital Signs - 24 hr 11/20/23 11/20/23 11/20/23 19:26 20:28 20:42 Temperature 36.6 C Heart Rate 87 90 97 Respiratory 18 18 18 Rate Blood Pressure 143/85 H 142/79 H 139/62 H O2 Saturation 96 98 99 Oxygen O2 Source Room air - Labs Labs: Laboratory Tests 11/20/23 11/20/23 11/20/23 19:52 19:52 19:52 WBC 5.9 RBC 4.90 Hgb 15.1 Hct 45.0 MCV 91.8 MCH 30.8 MCHC 33.6 RDW 13.5 Plt Count 240 MPV 9.0 Neut # (Auto) 2.5 Lymph # (Auto) 2.7 [place] # (Auto) 0.6 Eos # (Auto) 0.1 Baso # (Auto) 0.0 Absolute Nucleated RBC 0.00 Nucleated RBC % 0.0 PT 12.0 INR 1.1 Sodium 141 Potassium 4.1 Chloride 107 Carbon Dioxide 27 Anion Gap 7.0 BUN 10 Creatinine 0.8 Estimated GFR (MDRD) 97 Glucose 93 Calcium 9.0 Total Bilirubin 0.4 AST 65 H ALT 107 H Alkaline Phosphatase 38 L Total Protein 7.4 Albumin 4.4 Globulin 3.0 Albumin/Globulin Ratio 1.5 Ethyl Alcohol 311.2 Procedures - Laceration (location) R forehead Length in cm: 8 Wound type: Curved, Into subcut fat Anesthesia: Lidocaine 1% with epi Wound preparation: Chlorhexadine, Irrigated copiously NS Skin layer closure: Nylon, Running, Size #-0 - enter number (5-0) Other: Patient tolerated well, No complications, Neurovascular intact, Tetanus booster given PD Medical Decision Making - ED course ED course: aT first I thought he was concussed, he had the head injury and just did not seem quite right. Had some difficulty following commands. Subsequently his head and neck imaging came back unremarkable with regards to severe injury, but his labs were notable for a normal CBC, INR, CMP showing mild transaminitis, and a blood alcohol of 311 which would explain the physical exam findings. He is going home with his supportive roommate and intends to reestablish with detox. 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 Departure - Departure Disposition: 01 Home, Self Care Clinical Impression: Laceration Concussion Qualifiers: Encounter type: initial encounter Loss of consciousness presence/duration: without LOC Qualified Code(s): S06.0X0A - Concussion without loss of consciousness, initial encounter Injury of head and neck Qualifiers: Encounter type: initial encounter Qualified Code(s): S09.90XA - Unspecified injury of head, initial encounter Alcohol intoxication Qualifiers: Complication of substance-induced condition: uncomplicated Qualified Code(s): F10.920 - Alcohol use, unspecified with intoxication, uncomplicated Condition: Good Record reviewed to determine appropriate education?: Yes Instructions: ED Alcohol Intoxication, ED Laceration Facial Sutr Tape Comments: Come back for any signs of infection which would include: Redness, swelling, drainage, increased pain, or fevers. You can wash it soap and water. Keep it covered and moist with bacitracin ointment which is available over the counter; avoid neosporin. Follow-up with your physician in about 6 Days for suture removal. We think you would benefit from admission for detoxification and/or rehabilitation from alcohol and/or drugs. The closest facility that does this is in [place]. It is: [address] [address] Call them at [phone] to arrange an intake appointment. Forms: PCP List Discharge Date/Time: 11/20/23 20:45
[2023-11-20] MEDS: TETANUS/DIPHTHERIA/PERTUSSIS 0.5 ML SYRINGE IM ONE (19:48)
[2023-11-20] MEDS: LIDOCAINE 1%-EPI 1:100000 20 ML MDV SUBQ STA (19:48)
[2023-11-20 19:55] LABS: BASOPHILS % (AUTO) 0.3 %; EOSINOPHILS # (AUTO) 0.1 10^3/uL (0.0-0.7); EOSINOPHILS % (AUTO) 1.2 %; HGB - HEMOGLOBIN 15.1 g/dL (14.0-18.0); LYMPHOCYTES # (AUTO) 2.7 10^3/uL (1.5-3.5); LYMPHOCYTES % (AUTO) 45.3 %; MEAN CORPUSCULAR HEMOGLOBIN 30.8 pg (27.0-31.0); MEAN CORPUSCULAR HGB CONC 33.6 g/dL (32.0-36.0); MEAN CORPUSCULAR VOLUME 91.8 fL (80.0-94.0); MONOCYTES # (AUTO) 0.6 10^3/uL (0.0-1.0); MONOCYTES % (AUTO) 9.4 %; NEUTROPHILS # (AUTO) 2.5 10^3/uL (1.5-6.6); NEUTROPHILS % (AUTO) 43.5 %; PLT - PLATELET COUNT 240 10^3/uL (130-450); RED CELL DISTRIBUTION WIDTH 13.5 % (12.0-15.0); WHITE BLOOD COUNT 5.9 x10^3/uL (4.8-10.8)
[2023-11-20 20:01] LABS: INR 1.1 (0.8-1.2)
--- NOTE | 2023-11-20 20:03 | CT Report ---
PROCEDURE: Head WO INDICATIONS: head inj TECHNIQUE: Noncontrast 4.5 mm thick angled axial sections acquired from the foramen magnum to the vertex. For r adiation dose reduction, the following was used: automated exposure control, adjustment of mA and/or kV according to patient size. COMPARISON: None. FINDINGS: Image quality: Excellent. CSF spaces: Basal cisterns are patent. No extra-axial fluid collections. Ventricles are symmetric in size and shape. Brain: No midline shift. No intracranial masses or hemorrhage. Hypodensities in the subcortical and periventricular white matter are most commonly seen in setting of chronic microvascular ischemic nikki nges. Age-related cerebral and cerebellar volume loss is seen. Intracranial vascular calcifications a re noted in the internal carotid arteries. Skull and face: Scalp laceration is seen in the right frontal region. A punctate radiodensity is seen along the anterior margin of laceration (image 17 of sagittal series 8) that may represent a foreign body. Calvarium and visualized facial bones are intact, without suspicious lesions. Sinuses: Visualized sinuses and mastoids are clear. IMPRESSION: 1.Right frontal scalp laceration. Punctate radiodensity along the anterior margin of the laceration c ould represent a small foreign body or debris. 2.No acute intracranial abnormality. Reviewed by: Bar Galvez MD on 11/20/2023 8:01 PM PDT Approved by: Bar Galvez MD on 11/20/2023 8:01 PM PDT Station ID: [id number]
--- NOTE | 2023-11-20 20:04 | CT Report ---
PROCEDURE: Cervical Spine WO INDICATIONS: head inj TECHNIQUE: Noncontrast 3 mm thick sections acquired from the skull base to the T4 level. Sagittal and coronal r eformats were then constructed. For radiation dose reduction, the following was used: automated exp osure control, adjustment of mA and/or kV according to patient size. COMPARISON: None. FINDINGS: Image quality: Excellent. Bones: No acute fractures or dislocations. Visualized superior ribs are intact. Multilevel disc sp janice narrowing and degenerative endplate changes are seen at the mid cervical spine. There is multilev el uncovertebral joint and facet hypertrophy. 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 Soft tissues: Prevertebral soft tissues are normal in thickness. No paravertebral hematomas. No ap ical pneumothoraces. IMPRESSION: No acute, displaced fracture or traumatic subluxation. Moderate multilevel spondylosis. Reviewed by: Bar Galvez MD on 11/20/2023 8:03 PM PDT Approved by: Bar Galvez MD on 11/20/2023 8:03 PM PDT Station ID: [id number]
[2023-11-20 20:15] LABS: ALBUMIN 4.4 g/dL (3.2-5.5); ALBUMIN/GLOBULIN RATIO 1.5 (1.0-2.2); BILIRUBIN,TOTAL 0.4 mg/dL (0.2-1.0); CREATININE 0.8 mg/dL (0.6-1.3); ETOH - ETHANOL 311.2 mg/dL; POTASSIUM 4.1 mmol/L (3.5-4.5); TOTAL PROTEIN 7.4 g/dL (6.4-8.9)
[2023-11-20 20:44] VITALS: BP 139/62; O2SAT 99
== END 2023-11-20 20:45 | disposition home or self-care (01) ==
LOC: ED 19:15
DX: S06.0X0A Concussion without loss of consciousness, initial encounter (principal); S01.81XA Laceration without foreign body of other part of head, initial encounter; S19.9XXA Unspecified injury of neck, initial encounter; W19.XXXA Unspecified fall, initial encounter; F10.120 Alcohol abuse with intoxication, uncomplicated; Y90.8 Blood alcohol level of 240 mg/100 ml or more; Z79.899 Other long term (current) drug therapy; Z23 Encounter for immunization
CPT/HCPCS: 12004; 36415; 80053; 82077; 85025; 85610; 90471; 99284